=== PATIENT | female | born 1945 | race Caucasian/White ===

== ENCOUNTER 2017-01-01 20:19 | Observation (INO) | payer OTHER, BC ==
[~2017-01-01] VITALS: Ht 154.9 cm; Wt 96.3 kg
[~2017-01-01 20:19] MED LIST: ADVAIR HFA120 INHALA IH; ALPRAZOLAM0.25 M2 PO; AMOXICILLIN500 M1 PO; AQUAPHOR OINTM105 GM TP; ASPIR 8181 M1 PO; ATARAX,VISTARIL25 MG PO; ATORVASTATIN CA40 MG PO; Advair HFA 115/21 IH; BUPROPION HCL150 M2 PO; CYANOCOBALAM1000 MCG PO; DESYREL100 MG PO; DUONEB 2.5-0.5 M3 ML AEROSOL; Dilaudid PO; FENOFIBRATE145 M1 PO; FLONASE16 G1 BOTH NARES; FLOVENT 22120 INHALA IH; HYCODAN SYRUP5 ML PO; HYDROCODON-ACE1 EAC7 PO; Habitrol,Nicoderm CQ TD; IBUPROFEN400 MG PO; IBUPROFEN800 MG PO; K-DUR20 MEQ PO; KENALOG,ARISTOC80 G1 TP; LOFIBRA200 MG PO; MEDROL DOSEPAK4 MG PO; MONTELUKAST SOD10 MG PO; NICOTINE PATCH1 EAC2 TD; NOHOMEMEDS; NORVASC5 MG PO; PREDNISONE10 M1 PO; PREDNISONE20 MG PO; PROTONIX40 MG PO; PROVENTIL HFA6.7 GM IH; RESTORIL15 MG PO; SPIRIVA RESPIMAT4 GM IH; SPIRIVA1 INHALATI IH; SYMBICORT60 INHALAT IH; Singulair PO; TEMAZEPAM30 MG PO; TESSALON PERLE100 MG PO; THEOPHYLLINE400 MG PO; TRAMADOL HCL50 MG PO; TYLENOL REGULA325 MG PO; Tessalon Perle PO; ULTRAM50 MG PO; VITAMIN B-1250 MC3 PO; VITAMIN D-32000 UNI2 PO; VITAMIN D35000 UNIT PO; VITAMIN D5000 UNI1 PO; VITAMIN D50000 UNI4 PO; ZESTRIL20 MG PO; ZYRTEC10 M3 PO; predniSONE PO
[2017-01-01 21:50] LABS: HEMATOCRIT 37.7 % (36.0-46.0); MCH 29.6 PG (29.0-34.0); MCHC 32.4 G/DL (30.0-36.0); MCV 91.5 FL (83-99); MEAN PLAT.VOLUME 9.3 uM^3 (9.5-12.4); PLATELET COUNT 298 K/uL (156-360); RBC DIS.WIDTH-CV 12.8 % (11.8-14.6); RBC DIS.WIDTH-SD 43.1 % (39-53); RED BLOOD COUNT 4.12 M/uL (3.80-5.20); WHITE BLOOD COUNT 8.4 K/uL (4.1-10.2)
[2017-01-01 22:08] LABS: CHLORIDE 107 mEq/L (99-109); POTASSIUM 3.7 mEq/L (3.7-5.4); SODIUM 143 mEq/L (136-147)
[2017-01-01 22:10] LABS: GLUCOSE 101 mg/dL (70-99)
[2017-01-01 22:11] LABS: ANION GAP 9 MEQ/L (2-14)
[2017-01-01 22:14] LABS: GFR ESTIMATE (CALCULATED) 58 mL/min/
[2017-01-01 22:15] LABS: UREA NITROGEN (BUN) 14 mg/dL (9-23)
[2017-01-02 05:01] VITALS: BP 123/70
[2017-01-02 05:05] LABS: TROP-I INTERPRETATION NEGATIVE; TROPONIN-I < 0.01 ng/mL (0.0-0.30)
[2017-01-02 09:10] VITALS: BP 107/55
[2017-01-02] MEDS ORDERED: TESSALON PERLE100 MG PO (11:42)
[2017-01-02] MEDS ORDERED: LASIX20 MG PO (11:44)
[2017-01-02] MEDS ORDERED: KENALOG,ARISTOC80 G1 TP (11:46)
[2017-01-02] MEDS ORDERED: OCEAN NASAL 0.645 ML BOTH NARES (11:47)
[2017-01-02 13:00] VITALS: BP 115/56
[2017-01-02 13:31] LABS: HDL CHOLESTEROL 41 MG/DL (Desirable>=50); LDL CHOLESTEROL 119 mg/dL (Desirable<100); NON-HDL CHOLESTEROL 170 mg/dL (Desirable<160); TOTAL CHOLESTEROL 211 mg/dL (Desirable<200); TRIGLYCERIDES 257 MG/DL (Normal: <150)
[2017-01-02 13:34] LABS: Estimated Average Glucose 114 mg/dL (70-123); HEMOGLOBIN A1c (GLYCOHEMOGLOB) 5.6 % HGB (Below 5.7)
[2017-01-02 13:40] LABS: TROP-I INTERPRETATION NEGATIVE; TROPONIN-I < 0.01 ng/mL (0.0-0.30)
[2017-01-02] MEDS ORDERED: LISINOPRIL10 MG PO (14:07)
== END 2017-01-02 16:34 | disposition home or self-care (01) ==
LOC: EME → EDBD 20:19 → EDOF 01-02 03:46 → 5WEST 01-02 04:48
PROVIDERS: Emergency Medicine; Internal Medicine
DX: I16.0 Hypertensive urgency (principal); I10 Essential (primary) hypertension; R42 Dizziness and giddiness; J96.10 Chronic respiratory failure, unspecified whether with hypoxia or hypercapnia; G43.909 Migraine, unspecified, not intractable, without status migrainosus; I25.10 Atherosclerotic heart disease of native coronary artery without angina pectoris; I25.2 Old myocardial infarction; J44.9 Chronic obstructive pulmonary disease, unspecified; Z99.81 Dependence on supplemental oxygen; E78.5 Hyperlipidemia, unspecified; F41.1 Generalized anxiety disorder; F32.9 Major depressive disorder, single episode, unspecified; F17.200 Nicotine dependence, unspecified, uncomplicated
CPT/HCPCS: 70450; 80048; 80061; 83036; 84484; 85027; 93005; 93880; 94640; 94799; 99202; 99281; 99285; G0378; J7030

== ENCOUNTER 2017-04-02 11:22 | Emergency (ER) | payer OTHER, BC ==
[~2017-04-02] VITALS: Ht 154.9 cm; Wt 90.9 kg
[~2017-04-02 11:22] MED LIST changes: +LASIX20 MG PO; +LISINOPRIL10 MG PO; +OCEAN NASAL 0.645 ML BOTH NARES
[2017-04-02] MEDS ORDERED: FLEXERIL10 MG PO (12:25)
[2017-04-02] MEDS ORDERED: NAPROXEN500 MG PO (12:25)
[2017-04-02 12:50] VITALS: BP 106/57
== END 2017-04-02 13:13 | disposition home or self-care (01) ==
LOC: EME 11:22
DX: M54.5 Low back pain (principal); V47.5XXA Car driver injured in collision with fixed or stationary object in traffic accident, initial encounter; I10 Essential (primary) hypertension; J44.9 Chronic obstructive pulmonary disease, unspecified; J45.909 Unspecified asthma, uncomplicated; Z79.82 Long term (current) use of aspirin; F17.200 Nicotine dependence, unspecified, uncomplicated
CPT/HCPCS: 99281; 99284; J1885

== ENCOUNTER 2017-11-26 14:55 | Inpatient (IN) | payer OTHER ==
[~2017-11-26] VITALS: Ht 154.9 cm; Wt 90.9 kg
[~2017-11-26 14:55] MED LIST changes: +FLEXERIL10 MG PO; +NAPROXEN500 MG PO; -SPIRIVA RESPIMAT4 GM IH
[2017-11-26 16:37] LABS: HEMATOCRIT 35.4 % (36.0-46.0); MCH 30.3 PG (29.0-34.0); MCHC 33.9 G/DL (30.0-36.0); MCV 89.4 FL (83-99); PLATELET COUNT 236 K/uL (156-360); RBC DIS.WIDTH-CV 12.8 % (11.8-14.6); RED BLOOD COUNT 3.96 M/uL (3.80-5.20); WHITE BLOOD COUNT 8.8 K/uL (4.1-10.2)
[2017-11-26 16:48] LABS: ALBUMIN 4.5 g/dL (3.2-4.8); CHLORIDE 100 mEq/L (99-109); POTASSIUM 3.2 mEq/L (3.7-5.4); SODIUM 138 mEq/L (136-147)
[2017-11-26 16:51] LABS: GLUCOSE 105 mg/dL (70-99); TOTAL PROTEIN 7.6 g/dL (6.4-8.3)
[2017-11-26 16:53] LABS: TOTAL BILIRUBIN 0.4 mg/dL (0.0-1.0)
[2017-11-26 16:54] LABS: ALKALINE PHOSPHATASE 41 IU/L (3-129); CREATININE 0.9 mg/dL (0.6-1.3); GFR ESTIMATE (CALCULATED) > 59 mL/min/
[2017-11-26 16:56] LABS: AST (GOT) 25 IU/L (2-34); UREA NITROGEN (BUN) 7 mg/dL (9-23)
[2017-11-26 16:57] LABS: ALT (GPT) 14 IU/L (3-49)
[2017-11-26 16:59] LABS: TROP-I INTERPRETATION NEGATIVE; TROPONIN-I < 0.01 ng/mL (0.0-0.30)
[2017-11-26] MEDS ORDERED: DUONEB 2.5-0.5 M3 ML AEROSOL (17:49)
[2017-11-26] MEDS ORDERED: LISINOPRIL20 MG PO (17:50)
[2017-11-26] MEDS ORDERED: MICRO-K10 ME2 PO (17:51)
[2017-11-26] MEDS ORDERED: IBUPROFEN800 MG PO (17:51)
[2017-11-26] MEDS ORDERED: LASIX20 MG PO (17:52)
[2017-11-26] MEDS ORDERED: HYDROXYZINE HCL25 MG PO (17:52)
[2017-11-26] MEDS ORDERED: ATARAX,VISTARIL25 MG PO (17:52)
[2017-11-26 18:06] LABS: THEOPHYLLINE 6.9 MCG/ML (10-20)
[2017-11-27 01:00] VITALS: BP 91/53
[2017-11-27 04:30] VITALS: BP 121/66
[2017-11-27 06:59] LABS: HEMATOCRIT 31.4 % (36.0-46.0); HEMOGLOBIN 10.5 G/DL (11.9-15.5); MCH 30.4 PG (29.0-34.0); MCHC 33.4 G/DL (30.0-36.0); PLATELET COUNT 185 K/uL (156-360); RBC DIS.WIDTH-SD 42.8 % (39-53); RED BLOOD COUNT 3.45 M/uL (3.80-5.20); WHITE BLOOD COUNT 4.9 K/uL (4.1-10.2)
[2017-11-27 07:26] VITALS: BP 106/52
[2017-11-27 07:34] LABS: ALBUMIN 3.6 G/DL (3.2-4.8); ALKALINE PHOSPHATASE 29 IU/L (3-129); ALT (GPT) 8 IU/L (3-49); AST (GOT) 20 IU/L (2-34); CHLORIDE 106 MEQ/L (99-109); CREATININE 0.7 MG/DL (0.6-1.3); GFR ESTIMATE (CALCULATED) > 59 mL/min/; POTASSIUM 3.3 MEQ/L (3.7-5.4); SODIUM 140 MEQ/L (136-147); TOTAL BILIRUBIN 0.3 MG/DL (0.0-1.0); TOTAL PROTEIN 5.8 G/DL (6.4-8.3); UREA NITROGEN (BUN) 9 mg/dL (9-23)
[2017-11-27 07:37] LABS: GLUCOSE 167 mg/dL (70-99)
[2017-11-27 10:45] LABS: BASE EXCESS 2.8 mEq/L (-3 to +3); BICARBONATE 25.7 mEq/L (22-26); CARBOXY HGB 1.6 % (0-5); METHEMOGLOBIN 1.7 % (0-1.5); PCO2 33 mm Hg (35-45); PO2 77 mm Hg (80-100)
[2017-11-27 10:46] LABS: COMMENTS - BLOOD GASES C+; DEVICE NC; O2 FLOW 2 L/MIN; SITE RR
[2017-11-27 15:35] VITALS: BP 93/51
[2017-11-27 22:49] VITALS: BP 92/51
[2017-11-28 02:05] VITALS: BP 103/47
[2017-11-28 06:34] LABS: BASOPHIL (%) 0.1 % (0-1); EOSINOPHIL (%) 0 % (0-5); HEMATOCRIT 32.1 % (36.0-46.0); HEMOGLOBIN 10.5 G/DL (11.9-15.5); IMMATURE GRANULOCYTE (%) 0.9 % (0.0-0.7); LYMPHOCYTE (%) 5.8 % (15-42); LYMPHOCYTE COUNT 0.7 K/uL (1.0-2.8); MCH 29.5 PG (29.0-34.0); MCHC 32.7 G/DL (30.0-36.0); MCV 90.2 FL (83-99); MONOCYTE (%) 5.5 % (3-12); MONOCYTE COUNT 0.7 K/uL (0-0.8); NEUTROPHIL (%) 87.7 % (45-76); PLATELET COUNT 222 K/uL (156-360); RBC DIS.WIDTH-CV 13.1 % (11.8-14.6); RBC DIS.WIDTH-SD 43.5 % (39-53); RED BLOOD COUNT 3.56 M/uL (3.80-5.20); WHITE BLOOD COUNT 12.5 K/uL (4.1-10.2)
[2017-11-28 07:24] LABS: CHLORIDE 106 MEQ/L (99-109); CREATININE 0.8 MG/DL (0.6-1.3); GFR ESTIMATE (CALCULATED) > 59 mL/min/; GLUCOSE 151 mg/dL (70-99); MAGNESIUM 2.2 mg/dl (1.3-2.7); SODIUM 140 MEQ/L (136-147); UREA NITROGEN (BUN) 16 mg/dL (9-23)
[2017-11-28 07:39] VITALS: BP 109/56
[2017-11-28 16:41] VITALS: BP 103/51
[2017-11-28 23:26] VITALS: BP 91/51
[2017-11-29 00:04] VITALS: BP 96/51
[2017-11-29 06:49] LABS: HEMATOCRIT 32.3 % (36.0-46.0); HEMOGLOBIN 10.6 G/DL (11.9-15.5); MCH 30.1 PG (29.0-34.0); MCHC 32.8 G/DL (30.0-36.0); MCV 91.8 FL (83-99); PLATELET COUNT 235 K/uL (156-360); RBC DIS.WIDTH-CV 13.4 % (11.8-14.6); RBC DIS.WIDTH-SD 45.9 % (39-53); RED BLOOD COUNT 3.52 M/uL (3.80-5.20); WHITE BLOOD COUNT 13.6 K/uL (4.1-10.2)
[2017-11-29 07:18] LABS: CHLORIDE 104 MEQ/L (99-109); CREATININE 0.8 MG/DL (0.6-1.3); GFR ESTIMATE (CALCULATED) > 59 mL/min/; GLUCOSE 126 mg/dL (70-99); POTASSIUM 4.1 MEQ/L (3.7-5.4); SODIUM 140 MEQ/L (136-147); UREA NITROGEN (BUN) 20 mg/dL (9-23)
[2017-11-29 07:20] VITALS: BP 136/62
[2017-11-29 15:20] VITALS: BP 106/60
[2017-11-30 01:47] VITALS: BP 99/56
[2017-11-30 07:58] VITALS: BP 115/75
[2017-11-30 16:04] VITALS: BP 98/55
[2017-11-30 23:40] VITALS: BP 103/51
[2017-12-01 07:30] VITALS: BP 110/67
[2017-12-01] MEDS ORDERED: PREDNISONE10 M1 PO (10:18)
[2017-12-01] MEDS ORDERED: FLONASE16 G1 BOTH NARES (10:18)
[2017-12-01] MEDS ORDERED: ADVAIR HFA120 INHALA IH (10:18)
[2017-12-01] MEDS ORDERED: NICOTINE PATCH1 EAC2 TD (10:18)
[2017-12-01] MEDS ORDERED: MYCOSTATIN 100,60 ML PO (10:18)
[2017-12-01] MEDS ORDERED: ROBITUSSIN100 MG/5 M PO (10:18)
[2017-12-01] MEDS ORDERED: BENZONATATE100 MG PO (10:18)
[2017-12-01] MEDS ORDERED: FIORICET 50-301 EAC1 PO (10:18)
== END 2017-12-01 12:45 | disposition home or self-care (01) | DRG 191 ==
LOC: EME 14:55 → 5EAST 20:56 → EDOF 20:56 → ENRESERV 21:06 → 5EAST 22:52
PROVIDERS: Emergency Medicine; Hospitalist; Internal Medicine
DX: J44.1 Chronic obstructive pulmonary disease with (acute) exacerbation (principal); J10.1 Influenza due to other identified influenza virus with other respiratory manifestations; I27.20 Pulmonary hypertension, unspecified; I10 Essential (primary) hypertension; E78.5 Hyperlipidemia, unspecified; F41.1 Generalized anxiety disorder; J98.11 Atelectasis; F17.210 Nicotine dependence, cigarettes, uncomplicated; E87.6 Hypokalemia; R09.02 Hypoxemia; E66.9 Obesity, unspecified; Z68.37 Body mass index [BMI] 37.0-37.9, adult; I25.2 Old myocardial infarction; I25.10 Atherosclerotic heart disease of native coronary artery without angina pectoris; Z99.81 Dependence on supplemental oxygen
CPT/HCPCS: 36600; 71045; 71250; 80048; 80053; 80198; 82803; 83605; 83735; 84484; 85025; 85027; 87040; 87502; 93005; 94640; 94640 76; 94760; 94799; 99202; 99281; 99284; G0378; J1644; J1956; J2930; J7512; Q0177

== ENCOUNTER 2018-06-03 20:10 | Inpatient (IN) | payer OTHER ==
[~2018-06-03] VITALS: Ht 152.4 cm; Wt 89.4 kg
[~2018-06-03 20:10] MED LIST changes: +BENZONATATE100 MG PO; +FIORICET 50-301 EAC1 PO; +HYDROXYZINE HCL25 MG PO; +LISINOPRIL20 MG PO; +MICRO-K10 ME2 PO; +MYCOSTATIN 100,60 ML PO; +ROBITUSSIN100 MG/5 M PO
[2018-06-03 20:59] LABS: HEMATOCRIT 37.7 % (36.0-46.0); HEMOGLOBIN 12.7 G/DL (11.9-15.5); MCH 30.3 PG (29.0-34.0); MCHC 33.7 G/DL (30.0-36.0); PLATELET COUNT 285 K/uL (156-360); RBC DIS.WIDTH-CV 13.2 % (11.8-14.6); RBC DIS.WIDTH-SD 43.6 % (39-53); RED BLOOD COUNT 4.19 M/uL (3.80-5.20); WHITE BLOOD COUNT 12.1 K/uL (4.1-10.2)
[2018-06-03 21:01] LABS: APPEARANCE CLEAR ((CLEAR)); BILIRUBIN NEGATIVE; BLOOD NEGATIVE; COLOR STRAW ((YELLOW)); GLUCOSE (STRIP) NEGATIVE; KETONES NEGATIVE; LEUKOCYTES NEGATIVE; NITRITE NEGATIVE; PROTEIN (STRIP) NEGATIVE; SPECIFIC GRAVITY 1.008 (1.000-1.030); UCUL ADDED? NO; UROBILINOGEN 0.2 MG/DL (0.2-1.0)
[2018-06-03 21:28] LABS: ALBUMIN 4.7 g/dL (3.2-4.8)
[2018-06-03 21:29] LABS: CHLORIDE 103 mEq/L (99-109); POTASSIUM 3.9 mEq/L (3.7-5.4); SODIUM 141 mEq/L (136-147)
[2018-06-03 21:31] LABS: GLUCOSE 103 mg/dL (70-99); TOTAL PROTEIN 8.1 g/dL (6.4-8.3)
[2018-06-03 21:33] LABS: TOTAL BILIRUBIN 0.3 mg/dL (0.0-1.0)
[2018-06-03 21:35] LABS: ALKALINE PHOSPHATASE 39 IU/L (3-129); GFR ESTIMATE (CALCULATED) 58 mL/min/
[2018-06-03 21:36] LABS: AST (GOT) 20 IU/L (2-34); UREA NITROGEN (BUN) 13 mg/dL (9-23)
[2018-06-03 21:38] LABS: ALT (GPT) 10 IU/L (3-49)
[2018-06-03 22:16] LABS: LIPASE 53 U/L (1.0-51.0)
[2018-06-04 03:13] VITALS: BP 101/65
[2018-06-04 08:08] VITALS: BP 106/48
[2018-06-04] MEDS ORDERED: NORVASC5 MG PO (10:52)
[2018-06-04] MEDS ORDERED: CYANOCOBALAM1000 MCG PO (10:52)
[2018-06-04 15:57] VITALS: BP 110/52
[2018-06-04 20:06] VITALS: BP 108/55
[2018-06-05 01:17] VITALS: BP 103/54
[2018-06-05 04:25] VITALS: BP 98/53
[2018-06-05 06:32] LABS: ALBUMIN 3.2 G/DL (3.2-4.8); ALKALINE PHOSPHATASE 33 IU/L (3-129); ALT (GPT) 31 IU/L (3-49); AST (GOT) 34 IU/L (2-34); CHLORIDE 108 MEQ/L (99-109); CREATININE 0.8 MG/DL (0.6-1.3); GFR ESTIMATE (CALCULATED) > 59 mL/min/; GLUCOSE 122 mg/dL (70-99); POTASSIUM 3.6 MEQ/L (3.7-5.4); SODIUM 141 MEQ/L (136-147); TOTAL BILIRUBIN 0.6 MG/DL (0.0-1.0); TOTAL PROTEIN 5.2 G/DL (6.4-8.3); UREA NITROGEN (BUN) 9 mg/dL (9-23)
[2018-06-05 07:06] LABS: BASOPHIL (%) 0.2 % (0-1); EOSINOPHIL (%) 0.5 % (0-5); EOSINOPHIL COUNT 0.1 K/uL (0-0.3); HEMATOCRIT 29.7 % (36.0-46.0); IMMATURE GRANULOCYTE (%) 0.5 % (0.0-0.7); LYMPHOCYTE (%) 13.8 % (15-42); LYMPHOCYTE COUNT 1.7 K/uL (1.0-2.8); MCH 29.7 PG (29.0-34.0); MCHC 32.7 G/DL (30.0-36.0); MCV 90.8 FL (83-99); MONOCYTE (%) 5.2 % (3-12); MONOCYTE COUNT 0.6 K/uL (0-0.8); NEUTROPHIL (%) 79.8 % (45-76); NEUTROPHIL COUNT 9.6 K/uL (1.8-6.4); PLATELET COUNT 204 K/uL (156-360); RBC DIS.WIDTH-CV 13.2 % (11.8-14.6); RBC DIS.WIDTH-SD 44.1 % (39-53)
[2018-06-05 07:20] VITALS: BP 93/47
[2018-06-05 07:23] LABS: HEMOGLOBIN 9.7 G/DL (11.9-15.5); RED BLOOD COUNT 3.27 M/uL (3.80-5.20)
[2018-06-05 16:39] VITALS: BP 97/52
[2018-06-06 00:13] VITALS: BP 115/52
[2018-06-06 06:19] LABS: BASOPHIL (%) 0.2 % (0-1); EOSINOPHIL (%) 1.4 % (0-5); EOSINOPHIL COUNT 0.1 K/uL (0-0.3); HEMATOCRIT 29.5 % (36.0-46.0); HEMOGLOBIN 9.8 G/DL (11.9-15.5); IMMATURE GRANULOCYTE (%) 0.7 % (0.0-0.7); LYMPHOCYTE (%) 18.6 % (15-42); LYMPHOCYTE COUNT 1.7 K/uL (1.0-2.8); MCH 30.2 PG (29.0-34.0); MCHC 33.2 G/DL (30.0-36.0); MCV 90.8 FL (83-99); MONOCYTE (%) 6.4 % (3-12); MONOCYTE COUNT 0.6 K/uL (0-0.8); NEUTROPHIL (%) 72.7 % (45-76); NEUTROPHIL COUNT 6.7 K/uL (1.8-6.4); PLATELET COUNT 217 K/uL (156-360); RBC DIS.WIDTH-CV 13.1 % (11.8-14.6); RBC DIS.WIDTH-SD 43.8 % (39-53); RED BLOOD COUNT 3.25 M/uL (3.80-5.20); WHITE BLOOD COUNT 9.2 K/uL (4.1-10.2)
[2018-06-06 06:45] LABS: ALBUMIN 3.2 G/DL (3.2-4.8); ALKALINE PHOSPHATASE 43 IU/L (3-129); ALT (GPT) 31 IU/L (3-49); AST (GOT) 32 IU/L (2-34); CHLORIDE 108 MEQ/L (99-109); CREATININE 0.7 MG/DL (0.6-1.3); GFR ESTIMATE (CALCULATED) > 59 mL/min/; GLUCOSE 95 mg/dL (70-99); POTASSIUM 3.7 MEQ/L (3.7-5.4); SODIUM 140 MEQ/L (136-147); TOTAL BILIRUBIN 0.5 MG/DL (0.0-1.0); TOTAL PROTEIN 5.4 G/DL (6.4-8.3); UREA NITROGEN (BUN) 5 mg/dL (9-23)
[2018-06-06 07:15] VITALS: BP 100/52
[2018-06-06 14:54] LABS: STOOL OCCULT BLD 1ST SPECIMEN NEGATIVE
[2018-06-06 15:54] VITALS: BP 94/55
[2018-06-06 23:56] VITALS: BP 105/55
[2018-06-07 06:35] LABS: BASOPHIL (%) 0.5 % (0-1); EOSINOPHIL (%) 2.3 % (0-5); EOSINOPHIL COUNT 0.2 K/uL (0-0.3); HEMATOCRIT 28.7 % (36.0-46.0); HEMOGLOBIN 9.8 G/DL (11.9-15.5); IMMATURE GRANULOCYTE (%) 1.2 % (0.0-0.7); LYMPHOCYTE (%) 24.8 % (15-42); LYMPHOCYTE COUNT 1.6 K/uL (1.0-2.8); MCH 30.8 PG (29.0-34.0); MCHC 34.1 G/DL (30.0-36.0); MCV 90.3 FL (83-99); MONOCYTE (%) 10.6 % (3-12); MONOCYTE COUNT 0.7 K/uL (0-0.8); NEUTROPHIL (%) 60.6 % (45-76); NEUTROPHIL COUNT 3.9 K/uL (1.8-6.4); PLATELET COUNT 267 K/uL (156-360); RBC DIS.WIDTH-SD 43.5 % (39-53); RED BLOOD COUNT 3.18 M/uL (3.80-5.20); WHITE BLOOD COUNT 6.4 K/uL (4.1-10.2)
[2018-06-07 06:39] LABS: ALKALINE PHOSPHATASE 35 IU/L (3-129); ALT (GPT) 26 IU/L (3-49); AST (GOT) 22 IU/L (2-34); CHLORIDE 107 MEQ/L (99-109); CREATININE 0.7 MG/DL (0.6-1.3); GFR ESTIMATE (CALCULATED) > 59 mL/min/; GLUCOSE 101 mg/dL (70-99); POTASSIUM 3.6 MEQ/L (3.7-5.4); SODIUM 141 MEQ/L (136-147); THEOPHYLLINE 5.5 MCG/ML (10-20); TOTAL BILIRUBIN 0.4 MG/DL (0.0-1.0); TOTAL PROTEIN 5.1 G/DL (6.4-8.3); UREA NITROGEN (BUN) 5 mg/dL (9-23)
[2018-06-07 07:08] VITALS: BP 97/50
[2018-06-07 16:19] VITALS: BP 119/59
[2018-06-07 17:17] LABS: C DIFF TOXIN NEGATIVE (NEGATIVE)
[2018-06-07 21:35] VITALS: BP 133/75
[2018-06-08 06:07] LABS: HEMATOCRIT 29.5 % (36.0-46.0); HEMOGLOBIN 9.7 G/DL (11.9-15.5); MCH 29.5 PG (29.0-34.0); MCHC 32.9 G/DL (30.0-36.0); MCV 89.7 FL (83-99); PLATELET COUNT 296 K/uL (156-360); RBC DIS.WIDTH-CV 13.2 % (11.8-14.6); RBC DIS.WIDTH-SD 43.4 % (39-53); RED BLOOD COUNT 3.29 M/uL (3.80-5.20); WHITE BLOOD COUNT 6.3 K/uL (4.1-10.2)
[2018-06-08 07:15] VITALS: BP 112/62
[2018-06-08 16:20] VITALS: BP 107/57
[2018-06-08 19:10] VITALS: BP 115/70
[2018-06-09 01:29] VITALS: BP 116/68
[2018-06-09 06:37] LABS: BASOPHIL (%) 0.8 % (0-1); BASOPHIL COUNT 0.1 K/uL (0-0.1); EOSINOPHIL (%) 2.1 % (0-5); EOSINOPHIL COUNT 0.1 K/uL (0-0.3); HEMATOCRIT 29.6 % (36.0-46.0); HEMOGLOBIN 9.8 G/DL (11.9-15.5); IMMATURE GRANULOCYTE (%) 2.8 % (0.0-0.7); LYMPHOCYTE (%) 38.2 % (15-42); LYMPHOCYTE COUNT 2.3 K/uL (1.0-2.8); MCH 29.6 PG (29.0-34.0); MCHC 33.1 G/DL (30.0-36.0); MCV 89.4 FL (83-99); MONOCYTE (%) 9.6 % (3-12); MONOCYTE COUNT 0.6 K/uL (0-0.8); NEUTROPHIL (%) 46.5 % (45-76); NEUTROPHIL COUNT 2.9 K/uL (1.8-6.4); PLATELET COUNT 309 K/uL (156-360); RBC DIS.WIDTH-CV 13.2 % (11.8-14.6); RBC DIS.WIDTH-SD 43.3 % (39-53); RED BLOOD COUNT 3.31 M/uL (3.80-5.20); WHITE BLOOD COUNT 6.1 K/uL (4.1-10.2)
[2018-06-09 07:59] VITALS: BP 132/67
[2018-06-09] MEDS ORDERED: CIPRO500 MG PO (08:53)
[2018-06-09] MEDS ORDERED: FLAGYL500 MG PO (08:53)
[2018-06-09] MEDS ORDERED: DOCUSATE SODIU100 MG PO (08:55)
[2018-06-09] MEDS ORDERED: ACIDOPHILUS LA1 EACH PO (08:55)
[2018-06-09] MEDS ORDERED: HYDROCODON-ACE1 EAC7 PO (08:57)
== END 2018-06-09 13:24 | disposition home or self-care (01) | DRG 392 ==
LOC: EME 20:10 → 2EAST 06-04 01:34 → EDOF 06-04 01:34 → 2EAST 06-04 02:57
PROVIDERS: Family Medicine; Physician Assistant Medical
DX: K57.20 Diverticulitis of large intestine with perforation and abscess without bleeding (principal); J44.9 Chronic obstructive pulmonary disease, unspecified; I10 Essential (primary) hypertension; G43.909 Migraine, unspecified, not intractable, without status migrainosus; F41.9 Anxiety disorder, unspecified; F32.9 Major depressive disorder, single episode, unspecified; E66.9 Obesity, unspecified; I25.10 Atherosclerotic heart disease of native coronary artery without angina pectoris; E78.5 Hyperlipidemia, unspecified; F41.1 Generalized anxiety disorder; K44.9 Diaphragmatic hernia without obstruction or gangrene; K21.9 Gastro-esophageal reflux disease without esophagitis; F17.210 Nicotine dependence, cigarettes, uncomplicated; I25.2 Old myocardial infarction; Z79.82 Long term (current) use of aspirin; Z88.5 Allergy status to narcotic agent; Z68.38 Body mass index [BMI] 38.0-38.9, adult
CPT/HCPCS: 74176; 74177; 80053; 80198; 81003; 82272; 83605; 83690; 85025; 85027; 87040; 87493; 94799; 99281; 99285; J1170; J2270; J2405; J2543; J7040; J7050; Q0177; S0028